=== PATIENT | female | born 1935 | race Caucasian/White ===

== ENCOUNTER → 2017-09-11 | Outpatient (CLI) | payer MEDICARE ==
--- NOTE | 2017-09-11 11:30 | KCIC ---
Examination: MRI of the left knee without contrast HISTORY: History of left knee pain. COMPARISON: None available TECHNIQUE: Multiplanar, multisequence MR imaging of the left knee was performed without contrast FINDINGS: The anterior cruciate ligament, posterior cruciate ligament are intact. There is blunting of the posterior root of the medial meniscus at its attachment likely tear of the posterior root of the medial meniscus. There is mild increased signal identified in the body of the medial meniscus likely degeneration. The lateral meniscus appears intact. Medial collateral ligament is intact. Lateral collateral ligamentous complex including the fibular collateral ligament, biceps femoris tendon, popliteus tendon appear intact. The extensor mechanism is intact. Moderate knee joint effusion is identified. The medial retinaculum, lateral retinaculum appear intact. There's mild superficial fraying of cartilage identified in the lateral compartment of femoral compartment. The deep fissuring of cartilage identified in the medial compartment. Moderate joint space loss identified in the medial compartment. Mild joint space loss identified in the lateral compartment femoral compartments. IMPRESSION: 1. Tear of the root of the posterior horn medial meniscus. 2. Moderate knee joint effusion. 3. 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 4. Grade 2 chondromalacia medial compartment. Electronically signed by: Edmond Alba MD (09/11/2017 11:27 AM) [facility]
== END | disposition home or self-care (01) ==
LOC: KCIC MRI 08:27
PROVIDERS: ATTEND Orthopaedic Surgery
DX: S83.242A Other tear of medial meniscus, current injury, left knee, initial encounter (principal); M17.12 Unilateral primary osteoarthritis, left knee; M94.262 Chondromalacia, left knee; X58.XXXA Exposure to other specified factors, initial encounter; Y93.89 Activity, other specified; Y92.89 Other specified places as the place of occurrence of the external cause; Y99.8 Other external cause status
CPT/HCPCS: 73721

== ENCOUNTER → 2021-10-01 | Outpatient (CLI) | payer MEDICARE ==
--- NOTE | 2021-10-01 14:14 | RAD ---
XR CHEST 2V INDICATION: DYSPNEA. CHF. COMPARISON STUDY: None. FINDINGS: Lungs: Normal lung volume. Bibasilar opacities. Pleura: Moderate right and small left pleural effusions. Heart and Mediastinum: The cardiomediastinal silhouette is normal. Atherosclerosis of the thoracic ao rta. Bones and Soft Tissues: Degenerative changes of the spine. IMPRESSION: Moderate right and small left pleural effusions. Bibasilar opacities, probably subsegmental/relaxation atelectasis although a superimposed infectious process would be difficult to exclude. Electronically signed by: Timoteo Arroyo MD (10/01/2021 2:11 PM) [id number]
== END ==
LOC: RAD 13:16
PROVIDERS: ATTEND Internal Medicine Critical Care Medicine
DX: J90 Pleural effusion, not elsewhere classified (principal); I70.0 Atherosclerosis of aorta; R06.00 Dyspnea, unspecified; I50.22 Chronic systolic (congestive) heart failure; M47.819 Spondylosis without myelopathy or radiculopathy, site unspecified
CPT/HCPCS: 71046

== ENCOUNTER 2021-10-09 08:29 | Outpatient (CLI) | payer MEDICARE ==
[~2021-10-09] VITALS: Ht 157.5 cm; Wt 51.8 kg
[2021-10-09] MEDS ORDERED: CALC-450 PO (08:49)
[2021-10-09] MEDS ORDERED: METF-658 PO (08:49)
[2021-10-09] MEDS ORDERED: LEVO50TA5 PO (08:49)
[2021-10-09] MEDS ORDERED: MONT10TA49 PO (08:49)
[2021-10-09] MEDS ORDERED: SITA100T PO (08:49)
[2021-10-09] MEDS ORDERED: APIX2.5T PO (08:49)
[2021-10-09] MEDS ORDERED: BISO5TAB8 PO (08:49)
[2021-10-09] MEDS ORDERED: RALO60TA PO (08:49)
[2021-10-09] MEDS ORDERED: SIMV40TA PO (08:49)
[2021-10-09 09:11] LABS: BASO # 0.1 x10^3/uL (0.0-0.2); BASO % 1 % (0-3); EOS # 0.1 x10^3/uL (0.0-0.7); EOS % 2 % (0-3); HEMATOCRIT 36.7 % (36.0-47.0); HEMOGLOBIN 12.2 g/dL (12.0-15.5); LYMPH # 1.6 x10^3/uL (1.0-4.8); LYMPH % 22 % (24-48); MEAN CORPUSCULAR HEMOGLOBIN 29 pg (25-35); MEAN CORPUSCULAR HGB CONC 33 g/dL (31-37); MEAN CORPUSCULAR VOLUME 89 fL (79-100); MONO # 0.6 x10^3/uL (0.0-1.1); MONO % 8 % (0-9); NEUT # 4.9 x10^3/uL (1.8-7.7); NEUT % 67 % (31-73); PLATELET COUNT 193 x10^3/uL (140-400); RED BLOOD COUNT 4.15 x10^6/uL (3.50-5.40); RED CELL DISTRIBUTION WIDTH 14.6 % (11.5-14.5); WHITE BLOOD COUNT 7.3 x10^3/uL (4.0-11.0)
[2021-10-09 09:16] VITALS: BP 143/73
[2021-10-09 09:24] LABS: CALCIUM 8.4 mg/dL (8.5-10.1); GFR 52.4; POTASSIUM 3.7 mmol/L (3.5-5.1)
[2021-10-09 09:25] LABS: PROTHROMBIN TIME PATIENT 13.4 SEC (11.7-14.0)
[2021-10-09 10:25] VITALS: BP 140/56
[2021-10-09 10:38] VITALS: BP 140/74
[2021-10-09 10:55] VITALS: BP 133/68
[2021-10-09 11:10] VITALS: BP 136/70
--- NOTE | 2021-10-09 11:38 | NUR ---
pt discharged to home in private vehicle. pt ambulated and tolerated PO. discharge instructions received with patient
--- NOTE | 2021-10-09 13:23 | RAD ---
Right Thoracentesis 10/09/2021 10:21 AM Clinical History: Right pleural effusion. Technique: Relative benefits risks and alternatives were discussed with the patient and/or their rep resentative. Written informed consent was obtained. The patient was placed in seated position. A jason eout procedure was performed. Sonographic assessment demonstrates a large pleural effusion. A site for skin entry was selected, and subsequently prepped and draped using sterile barrier technique. 1% lidocaine without epinepherine was administered for local anesthesia to the skin and subcutaenous tissues. A 5 Portuguese sheathed needle was passed into the pleural space. Clear yellow fluid was aspirated and t he catheter was connected to a vacuum. Approximately 700 cc of fluid were drained. The catheter was r emoved and adequate hemostasis was obtained. A sterile dressing was applied. The patient tolerated t he procedure well, without complications. Impression: Successful ultrasound guided right thoracentesis Electronically signed by: Buck Farmer MD (10/09/2021 1:20 PM) [id number]
--- NOTE | 2021-10-10 17:08 | PATHOLOGY ---
Note [facility] Accession Number: [id number] TESTS RESULT FLAG UNITS REF RANGE LAB Clinician Provided Cytology Information No. of containers..01 Other (Miscellaneous) Source: RT PLEURAL FLUID1 DIAGNOSIS: RT PLEURAL FLUID1 NEGATIVE FOR MALIGNANT CELLS. FOCALLY REACTIVE MESOTHELIAL CELLS PRESENT. THIS EVALUATION INCLUDES EXAMINATION OF A CELL BLOCK. Signed out by: 02 Anup Cameron MD, Pathologist NPI- [id number] Performed by: Lyndsey Lainez, Psychologist [employer] ([facility]) Gross description: 01 30ML, YELLOW, HAZY /LCS 10/10/2021 0305 Local FLAG LEGEND: L-Low Normal,H-High Normal,LL-Alert Low,HH-Alert High <-Panic Low,>-Panic High,A-Abnormal,AA-Critical Abnormal Performed at: 01 [facility] [address] [place] [address] Phillip Perera MD, 02 [facility] [address] [place] [address] Anup Cameron MD, Specimen Comment: A courtesy copy of this report has been sent to [phone], [phone] Specimen Comment: [id number], Specimen Comment: Report sent to DR. VILLAR, DR RAMIREZ / DR LILLIG Performed at: 01 [facility] [address], [place], [place] [id number] MD Phillip Perera MD Phone: [phone]
== END 2021-10-09 11:39 | disposition home or self-care (01) ==
LOC: INTRAD 08:29
PROVIDERS: ATTEND Internal Medicine Critical Care Medicine
DX: J90 Pleural effusion, not elsewhere classified (principal); I48.91 Unspecified atrial fibrillation; E78.00 Pure hypercholesterolemia, unspecified; E11.9 Type 2 diabetes mellitus without complications; J45.909 Unspecified asthma, uncomplicated; M19.90 Unspecified osteoarthritis, unspecified site; Z79.899 Other long term (current) drug therapy; Z98.890 Other specified postprocedural states
CPT/HCPCS: 32555; 36415; 80048; 83615; 84157; 85025; 85610; 87071; 87075